=== PATIENT | female | born 1995 | race African-American/Black ===

== ENCOUNTER 2017-08-02 23:21 | Emergency (ER) | payer MEDICAID ==
[~2017-08-02] VITALS: Ht 172.7 cm; Wt 86.0 kg
[2017-08-03] MEDS ORDERED: ONDANSETRON HCL 4MG/2ML VIAL IV STA (00:10)
[2017-08-03] MEDS ORDERED: MAGNESIUM/ALUMINUM HYDROXIDE/SIMETHICONE 30ML UDC PO STA (00:10)
[2017-08-03] MEDS ORDERED: KETOROLAC 30MG/ML VIAL IV STA (00:10)
[2017-08-03] MEDS ORDERED: FAMOTIDINE 20MG/2ML VIAL IV STA (00:10)
[2017-08-03] MEDS ORDERED: SODIUM CHLORIDE 0.9% 1,000 ML IV ONE (00:10)
[2017-08-03 00:52] LABS: BASOPHILS % 0.2 % (0.0-2.0); EOSINOPHILS % 0.1 % (0.0-5.0); HEMATOCRIT. 33.3 % (36.0-48.0); HEMOGLOBIN. 11.4 g/dL (12.0-16.0); MEAN CORPUSCULAR HEMOGLOBIN 29.8 pg (28.0-32.0); MEAN CORPUSCULAR VOLUME 86.9 fL (81.0-99.0); MONOCYTES % 4.9 % (2.0-8.0); NEUTROPHILS % 81.8 % (40.0-76.0); PLATELET 328 x1000/uL (130-400); RED BLOOD CELL COUNT 3.84 mill/uL (4.2-5.4); RED CELL DISTRIBUTION WIDTH 13.5 % (11.6-14.6)
[2017-08-03 00:53] LABS: CHLORIDE 102 mEq/L (98-107)
[2017-08-03 00:56] LABS: PROTHROMBIN TIME 10.9 sec (9.4-11.6)
[2017-08-03 00:57] LABS: ETHANOL BLOOD < 10 mg/dL
[2017-08-03 00:58] LABS: HCG SCREEN NEGATIVE
[2017-08-03] MEDS ORDERED: POTASSIUM BICARB/CIT ACID 25 MEQ TABLET.EFF PO ONE (01:15)
[2017-08-03 03:49] VITALS: BP 107/69
== END 2017-08-03 03:50 | disposition home or self-care (01) ==
LOC: ER 08-03 02:32
DX: R10.11 Right upper quadrant pain (principal); E87.6 Hypokalemia; F17.200 Nicotine dependence, unspecified, uncomplicated; F12.10 Cannabis abuse, uncomplicated
CPT/HCPCS: 36415; 74176; 76705; 80053; 83690; 84703; 85025; 85610; 96361; 96374; 96375; 99285; G0482; J1885; J2405; J3490; J7030; Z7610